=== PATIENT | female | born 1955 | race Caucasian/White ===

== ENCOUNTER 2016-10-06 06:57 | Day surgery (SDC) | payer OTHER ==
[~2016-10-06] VITALS: Ht 162.6 cm; Wt 70.2 kg
[~2016-10-06 06:57] MED LIST: ALBUTEROL SULF8.5 GM IH; AMBIEN10 MG PO; B-COMPLEX-VITA1 EACH PO; BENADRYL25 MG PO; CELECOXIB200 MG PO; CHILDREN'S ASPI81 M1 PO; COUMADIN1 MG PO; DILAUDID4 MG PO; DOK PLUS TABLE1 EACH PO; EFFEXOR XR75 MG PO; FLUCONAZOLE NASAL NS; HYZAAR 100-21 TABLET PO; IRON325 MG PO; KADIAN30 MG PO; KEFLEX500 MG PO; KLONOPIN0.5 M1 PO; LIDODERM 5% P1 PATCH TD; MILK OF MAGNESI10 ML PO; MULTIPLE VITAM1 EAC4 PO; NASACORT AQ16.5 GM BOTH NARES; NASACORT10.8 ML BOTH NARES; OMEPRAZOLE40 M1 PO; ONDANSETRON ODT4 MG PO; OXYCODONE HCL10 MG PO; OXYCODONE HCL5 MG PO; OXYCODONE-ACET1 EACH PO; PENNSAID112 GM TP; PERCOCET 5/31 TABLET PO; PRILOSEC40 MG PO; PROAIR HFA8.5 GM IH; PROMETHEGAN25 MG PR; SIMVASTATIN40 MG PO; TOPROL XL25 MG PO; TRANSDERM-SCO1 PATCH TD; TYLENOL REGULA325 MG PO; ULTRAM50 MG PO; VALIUM10 MG PO; VALIUM5 MG PO; VENTOLIN HFA18 GM IH; VITAMIN B-122000 MC1 PO; XANAX0.5 MG PO; XARELTO10 MG PO; ZANAFLEX4 M1 PO; ZANAFLEX4 MG PO; ZOCOR40 MG PO
[2016-10-06 07:41] VITALS: BP 115/72
[2016-10-06] MEDS ORDERED: NORCO 5/3251 TABLET PO (09:41)
[2016-10-06 10:47] VITALS: BP 117/56
[2016-10-06] MEDS ORDERED: PERCOCET 5/31 TABLET PO (14:07)
== END 2016-10-06 11:05 | disposition home or self-care (01) ==
LOC: SDC 06:57
DX: D17.1 Benign lipomatous neoplasm of skin and subcutaneous tissue of trunk (principal); I10 Essential (primary) hypertension; J45.909 Unspecified asthma, uncomplicated; E78.01 Familial hypercholesterolemia; R73.03 Prediabetes; F41.8 Other specified anxiety disorders; I48.91 Unspecified atrial fibrillation; K21.9 Gastro-esophageal reflux disease without esophagitis; Z90.13 Acquired absence of bilateral breasts and nipples; Z82.61 Family history of arthritis; Z79.82 Long term (current) use of aspirin; Z87.891 Personal history of nicotine dependence; Z83.3 Family history of diabetes mellitus; Z82.49 Family history of ischemic heart disease and other diseases of the circulatory system; Z80.3 Family history of malignant neoplasm of breast; Z80.0 Family history of malignant neoplasm of digestive organs; Z82.3 Family history of stroke
CPT/HCPCS: 88305; 93005; J0690; J3010

== ENCOUNTER → 2017-09-16 | Outpatient (CLI) | payer OTHER ==
[~2017-09-16] VITALS: Ht 162.6 cm; Wt 68.0 kg
[~2017-09-16] MED LIST changes: +NORCO 5/3251 TABLET PO
== END | disposition home or self-care (01) ==
LOC: AMB 10:33
DX: K31.7 Polyp of stomach and duodenum (principal); R94.8 Abnormal results of function studies of other organs and systems; R63.4 Abnormal weight loss; D64.9 Anemia, unspecified; R63.0 Anorexia; K21.9 Gastro-esophageal reflux disease without esophagitis; K57.30 Diverticulosis of large intestine without perforation or abscess without bleeding; Z85.3 Personal history of malignant neoplasm of breast; I10 Essential (primary) hypertension; J45.909 Unspecified asthma, uncomplicated; M19.90 Unspecified osteoarthritis, unspecified site; E78.01 Familial hypercholesterolemia; R73.03 Prediabetes; Z79.82 Long term (current) use of aspirin; Z87.891 Personal history of nicotine dependence; Z80.0 Family history of malignant neoplasm of digestive organs; Z80.3 Family history of malignant neoplasm of breast; Z91.048 Other nonmedicinal substance allergy status; Z91.040 Latex allergy status; Z82.49 Family history of ischemic heart disease and other diseases of the circulatory system; Z82.3 Family history of stroke
CPT/HCPCS: 80048; 88305; 88342 TC; J2250; J3010

== ENCOUNTER → 2017-11-01 | Outpatient (CLI) | payer OTHER | END | disposition home or self-care (01) | LOC: NUC 06:43 | DX: R10.13 Epigastric pain (principal) | CPT/HCPCS: 78264; A9541 ==